=== PATIENT | male | born 1935 | race Caucasian/White ===

== ENCOUNTER 2018-01-16 12:21 | Emergency (ER) | payer MEDICARE, OTHER ==
[2018-01-16 16:35] LABS: Urine Appearance Clear; Urine Blood Negative (Negative); Urine Color Yellow; Urine Ketones Trace (Negative); Urine Protein Negative (Negative); Urine Specific Gravity 1.009 (1.010-1.030); Urine Urobilinogen Negative (Negative)
[2018-01-16 17:53] LABS: ABS Basophils 0 10^3/ul (0-0.2); ABS Eosinophils 0.1 10^3/ul (0-0.6); ABS Lymphocytes 1.4 10^3/ul (1.0-4.8); ABS Monocytes 0.4 10^3/ul (0-0.8); ABS Neutrophils 4.2 10^3/ul (1.5-7.7); ABS Nucleated RBC 0 10^3/ul; Eosinophil % 0.8 % (0-6); Hematocrit 44 % (42-52); Hemoglobin 14.7 g/dl (14.0-18.0); Lymphocyte % 23.5 % (25-47); Mean Corpuscular HGB Conc 34 g/dl (31-36); Mean Corpuscular Hemoglobin 32 pg (27-31); Mean Corpuscular Volume 94 fL (80-94); Mean Platelet Volume 8 um3 (7.4-10.4); Nucleated Red Blood Cells % 0; Platelet Count 170 10^3/ul (150-450); Red Blood Count 4.63 10^6/ul (4.0-5.4); Red Cell Distribution Width 13 % (10.5-15); White Blood Count 6.2 10^3/ul (3.5-10.8)
[2018-01-16 18:10] LABS: EGFR Non-African American 87.5 (>60)
--- NOTE | 2018-01-16 18:58 | ED ---
Psychiatric Complaint - HPI Summary HPI Summary: Pt here w/ insomnia x 3 weeks. Started on sertraline in the hopes this would help but no improvement. In fact, he's sleeping less. Was also rx'd alprazolam for insomnia/anxiety and he reports this helped 1 night but only sleeping 1-2 hours since. He additionally tried benadryl on his own which helped 1 night but no after. He is exhausted from not sleeping and anxiety is increasing. [facility] Cannot be seen for med adjustment until 01/29/2018 which is why he's here. Has family and support. - History Of Current Complaint Chief Complaint: EDGeneral Time Seen by Provider: 01/16/18 14:50 Hx Obtained From: Patient - Allergies/Home Medications Allergies/Adverse Reactions: Allergies Allergy/AdvReac Type Severity Reaction Status Date / Time ENVIRONMENT/SEASONAL HAYFEVER Allergy WATERY Uncoded 01/16/18 12:27 EYES,RUNNYNOSE Home Medications: Home Medications ALPRAZolam TAB* [Xanax TAB*] 0.25 mg PO DAILY 01/16/18 [History Confirmed ] ALPRAZolam TAB* [Xanax TAB*] 0.5 mg PO BID 01/16/18 [History Confirmed 01/16/18] Aspirin EC Low Dose* [Ecotrin EC Low Dose 81 MG*] 81 mg PO DAILY 01/16/18 [ History Confirmed 01/16/18] Brimonidine Tartrate 0.2 % RIGHT EYE BID 01/16/18 [History Confirmed 01/16/18] Cholecalciferol CAP/TAB(NF) [Vitamin D3 CAP/TAB (NF)] 2,000 unit PO DAILY [History Confirmed 01/16/18] Dorzolamide/Timolol OPTH (NF) [Cosopt (NF)] 1 drop RIGHT EYE BID 01/16/18 [ History Confirmed 01/16/18] Sertraline* [Zoloft*] 50 mg PO DAILY 01/16/18 [History Confirmed 01/16/18] Simvastatin (NF) [Zocor (NF)] 40 mg PO QPM 01/16/18 [History Confirmed 01/16/18] PMH/Surg Hx/FS Hx/Imm Hx Previously Healthy: Yes Endocrine/Hematology History: Denies: Hx Anticoagulant Therapy - ASA Cardiovascular History: Reports: Hx Coronary Artery Disease - CARDIAC STENT - 2010, Other Cardiovascular Problems/Disorders - CHOLESTEROL CONTROL WITH MEDICATION GI History: Reports: Hx Hiatal Hernia - DIAGNOSIS YEARS AGO, NO PROBLEMS History: Reports: Other Problems/Disorders - BENIGN PROSTATE HYPERTROPHY Musculoskeletal History: Reports: Hx Arthritis - MINOR PROBLEMS Sensory History: Reports: Hx Contacts or Glasses - GLASSES, Hx Glaucoma - BILATERAL Denies: Hx Hearing Aid Opthamlomology History: Reports: Hx Contacts or Glasses - GLASSES, Hx Glaucoma - BILATERAL Psychiatric History: Reports: Hx Anxiety - ON MEDS - Surgical History Surgery Procedure, Year, and Place: HEMORRHOIDECTOMY, [facility] [place] (OVER 50 YEARS AGO). CYST REMOVED FROM LOWER PART OF SPINE, [facility] [place] (OVER 50 YEARS AGO). 2010 CARDIAC STENT PLACEMENT, [facility]. 2011 TRANSURETHRAL RESECTION OF PROSTATE, [facility] [place] Hx Anesthesia Reactions: No - Immunization History Date of Tetanus Vaccine: Unk Date of Influenza Vaccine: Fall 2013 Infectious Disease History: No Infectious Disease History: Denies: Traveled Outside the [place] in Last 30 Days - Family History Known Family History: Positive: None - Social History Occupation: Retired Lives: With Family - Alcohol Use: None Hx Substance Use: No Substance Use Type: Reports: None. Denies: Excessive Caffeine Hx Tobacco Use: No Smoking Status (MU): Never Smoked Tobacco Review of Systems Positive: Fatigue - exhausted - wants to sleep - having memory issues d/t lack of sleep Eyes: Negative ENT: Negative Cardiovascular: Negative Respiratory: Negative Gastrointestinal: Negative Positive: no symptoms reported Musculoskeletal: Negative Skin: Negative Neurological: Negative Positive: Anxious All Other Systems Reviewed And Are Negative: Yes Physical Exam Triage Information Reviewed: Yes Vital Signs On Initial Exam: Initial Vitals Temp Pulse Resp BP Pulse Ox 97.3 F 68 18 126/71 99 01/16/18 12:23 01/16/18 12:23 01/16/18 12:23 01/16/18 12:23 01/16/18 12:23 Vital Signs Reviewed: Yes Appearance: Positive: Well-Appearing, Well-Nourished, Pain Distress - no pain but appears anxious, perseverates on insomnia Skin: Positive: Warm, Skin Color Reflects Adequate Perfusion, Dry Head/Face: Positive: Normal Head/Face Inspection - no signs of trauma Eyes: Positive: Normal, EOMI, JOHN, Conjunctiva Clear ENT: Positive: Normal ENT inspection, Hearing grossly normal, Pharynx normal - mucosa moist, TMs normal. Negative: Nasal congestion Neck: Positive: Supple, Nontender, No Lymphadenopathy Respiratory/Lung Sounds: Positive: Clear to Auscultation, Breath Sounds Present Cardiovascular: Positive: S1, S2. Negative: Murmur, Rub, Leg Edema Left, Leg Edema Right Abdomen Description: Positive: Nontender, No Organomegaly, Soft Bowel Sounds: Positive: Present Musculoskeletal: Positive: Normal, Strength/ROM Intact - appropriate given arthritis Neurological: Positive: Sensory/Motor Intact, Alert, Oriented to Person Place, Time - overall mentation is intact - he does struggle w/ recall of details but admits he hasn't been thinking clearly since sleep deprivation got worse, CN Intact II-III Psychiatric: Positive: Anxious - hyperverbal, perseverates, seems relaxed and happy to talk about the past; upset and anxious when reporting how the news, etc have a negative impact on him- also explains in a round about way he's upset about his keeping the TV loud enough for him to hear her programs which are dramatic and negative; no SI/HI - just wants to get better Diagnostics - Vital Signs Vital Signs Temp Pulse Resp BP Pulse Ox 01/16/18 18:00 71 99 01/16/18 17:42 65 99 01/16/18 17:30 155/77 01/16/18 17:00 147/83 01/16/18 16:30 162/75 01/16/18 16:00 66 168/89 100 01/16/18 15:30 63 144/74 99 01/16/18 15:00 62 138/76 98 01/16/18 14:30 58 123/69 97 01/16/18 14:10 60 99 01/16/18 14:08 146/77 01/16/18 12:23 97.3 F 68 18 126/71 99 - Laboratory Lab Results: Lab Results 01/16/18 01/16/18 01/16/18 Range/Units 16:23 17:39 17:42 WBC (3.5-10.8) 10^3/ul RBC (4.0-5.4) 10^6/ul Hgb (14.0-18.0) g/dl Hct (42-52) % MCV (80-94) fL MCH (27-31) pg MCHC (31-36) g/dl RDW (10.5-15) % Plt Count (150-450) 10^3/ul MPV (7.4-10.4) um3 Neut % (Auto) (38-83) % Lymph % (Auto) (25-47) % [place] % (Auto) (0-7) % Eos % (Auto) (0-6) % Baso % (Auto) (0-2) % Absolute Neuts (auto) (1.5-7.7) 10^3/ul Absolute Lymphs (auto) (1.0-4.8) 10^3/ul Absolute Monos (auto) (0-0.8) 10^3/ul Absolute Eos (auto) (0-0.6) 10^3/ul Absolute Basos (auto) (0-0.2) 10^3/ul Absolute Nucleated RBC 10^3/ul Nucleated RBC % Sodium 136 (133-145) mmol/L Potassium 4.3 (3.5-5.0) mmol/L Chloride 104 (101-111) mmol/L Carbon Dioxide 28 (22-32) mmol/L Anion Gap 4 (2-11) mmol/L BUN 17 (6-24) mg/dL Creatinine 0.84 (0.67-1.17) mg/dL Est GFR ( Amer) 112.5 (>60) Est GFR (Non-Af Amer) 87.5 (>60) BUN/Creatinine Ratio 20.2 H (8-20) Glucose 99 (70-100) mg/dL Calcium 9.1 (8.6-10.3) mg/dL Magnesium 2.0 (1.9-2.7) mg/dL Total Bilirubin 0.80 (0.2-1.0) mg/dL AST 18 (13-39) U/L ALT 15 (7-52) U/L Alkaline Phosphatase 40 (34-104) U/L Total Protein 6.2 L (6.4-8.9) g/dL Albumin 3.8 (3.2-5.2) g/dL Globulin 2.4 (2-4) g/dL Albumin/Globulin Ratio 1.6 (1-3) TSH 0.80 (0.34-5.60) mcIU/mL Urine Color Yellow Urine Appearance Clear Urine pH 6.0 (5-9) Ur Specific [place] 1.009 L (1.010-1.030) Urine Protein Negative (Negative) Urine Ketones Trace A (Negative) Urine Blood Negative (Negative) Urine Nitrate Negative (Negative) Urine Bilirubin Negative (Negative) Urine Urobilinogen Negative (Negative) Ur Leukocyte Esterase Negative (Negative) Urine Glucose Negative (Negative) Salicylates < 2.50 (<30) mg/dL Urine Opiates Screen None detected (None Detect) Acetaminophen < 15 mcg/mL Ur Barbiturates Screen None detected (None Detect) Ur Phencyclidine Scrn None detected (None Detect) Ur Amphetamines Screen None detected (None Detect) U Benzodiazepines Scrn Presumptive positive A (None Detect) Urine Cocaine Screen None detected (None Detect) U Cannabinoids Screen None detected (None Detect) Serum Alcohol < 10 (<10) mg/dL 01/16/18 Range/Units 17:42 WBC 6.2 (3.5-10.8) 10^3/ul RBC 4.63 (4.0-5.4) 10^6/ul Hgb 14.7 (14.0-18.0) g/dl Hct 44 (42-52) % MCV 94 (80-94) fL MCH 32 H (27-31) pg MCHC 34 (31-36) g/dl RDW 13 (10.5-15) % Plt Count 170 (150-450) 10^3/ul MPV 8 (7.4-10.4) um3 Neut % (Auto) 68.4 (38-83) % Lymph % (Auto) 23.5 L (25-47) % [place] % (Auto) 6.7 (0-7) % Eos % (Auto) 0.8 (0-6) % Baso % (Auto) 0.6 (0-2) % Absolute Neuts (auto) 4.2 (1.5-7.7) 10^3/ul Absolute Lymphs (auto) 1.4 (1.0-4.8) 10^3/ul Absolute Monos (auto) 0.4 (0-0.8) 10^3/ul Absolute Eos (auto) 0.1 (0-0.6) 10^3/ul Absolute Basos (auto) 0 (0-0.2) 10^3/ul Absolute Nucleated RBC 0 10^3/ul Nucleated RBC % 0 Sodium (133-145) mmol/L Potassium (3.5-5.0) mmol/L Chloride (101-111) mmol/L Carbon Dioxide (22-32) mmol/L Anion Gap (2-11) mmol/L BUN (6-24) mg/dL Creatinine (0.67-1.17) mg/dL Est GFR ( Amer) (>60) Est GFR (Non-Af Amer) (>60) BUN/Creatinine Ratio (8-20) Glucose (70-100) mg/dL Calcium (8.6-10.3) mg/dL Magnesium (1.9-2.7) mg/dL Total Bilirubin (0.2-1.0) mg/dL AST (13-39) U/L ALT (7-52) U/L Alkaline Phosphatase (34-104) U/L Total Protein (6.4-8.9) g/dL Albumin (3.2-5.2) g/dL Globulin (2-4) g/dL Albumin/Globulin Ratio (1-3) TSH (0.34-5.60) mcIU/mL Urine Color Urine Appearance Urine pH (5-9) Ur Specific [place] (1.010-1.030) Urine Protein (Negative) Urine Ketones (Negative) Urine Blood (Negative) Urine Nitrate (Negative) Urine Bilirubin (Negative) Urine Urobilinogen (Negative) Ur Leukocyte Esterase (Negative) Urine Glucose (Negative) Salicylates (<30) mg/dL Urine Opiates Screen (None Detect) Acetaminophen mcg/mL Ur Barbiturates Screen (None Detect) Ur Phencyclidine Scrn (None Detect) Ur Amphetamines Screen (None Detect) U Benzodiazepines Scrn (None Detect) Urine Cocaine Screen (None Detect) U Cannabinoids Screen (None Detect) Serum Alcohol (<10) mg/dL Result Diagrams: 01/16/18 17:42 01/16/18 17:42 Lab Statement: Any lab studies that have been ordered have been reviewed, and results considered in the medical decision making process. Course/Dx - Course Course Of Treatment: Pt presents w/ 3 week h/o insomnia which is worse as of late. He has been taking sertaline and tried alprazolam as well as benadryl with limited relief. He has a tremendous amount of anxiety and it's difficult to tell if this triggered insomnia or if insomnia is exacerbating pre-existing anxiety or both. Due to his age, I have requested a psychiatriast evaluation for med suggestion as I do not want to cause more harm than good ordering a standard sleep aid such as trazodone, ambien which are not appropriate for him. MH agrees to hold in flex until psychiatrist may evaluate in the morning. ALthough pt is reluctant d/t change, pt and [id number] agree w/ plan. - Differential Dx/Clinical Impression Provider Diagnosis: Anxiety Discharge - Discharge Plan Condition: Stable Disposition: HOME Prescriptions: QUEtiapine TAB* [SEROquel TAB*] 25 mg PO BEDTIME #30 tab Referrals: Rodriguez FERNANDEZ,Tash Mckeon [Primary Care Provider] -
[2018-01-16] MEDS ORDERED: ALPRAZolam TAB* 0.5 MG PO ONE (22:57)
[2018-01-16] MEDS ORDERED: Latanoprost 0.005%* 2.5 ml BTL RIGHT EYE SCH (23:00)
[2018-01-16] MEDS ORDERED: Simvastatin TAB(NF) 20 MG TAB PO ONE (23:01)
[2018-01-16] MEDS ORDERED: Atorvastatin* 20 MG TAB PO ONE (23:45)
--- NOTE | 2018-01-17 12:42 | PN ---
ED Flex Patient Progress Note Date of Service: 01/17/18 Subjective: This is a 82 year-old M who is pending discharge to home secondary to insomnia. Pt states only slept 3 hours last night. He also admits to in appetite past couple months. Objective: Vitals: Most recent vital signs documented below. General NAD, Alert and oriented x3. Heart: rrr at 70bpm Lungs: CTA or with rales, rhonchi, wheezing abd: soft nontender Laboratory: Current laboratory results documented below. Assessment: insomnia Plan: Pending psychiatric to discharge condition:Stable disposition: home Vital Signs Temp Pulse Resp BP Pulse Ox 98.1 F 77 14 111/70 99 01/16/18 23:22 01/16/18 23:22 01/16/18 23:55 01/16/18 23:22 01/16/18 23:22 Lab Results - Entire Visit 01/16/18 01/16/18 01/16/18 17:42 17:42 17:39 WBC 6.2 RBC 4.63 Hgb 14.7 Hct 44 MCV 94 MCH 32 H MCHC 34 RDW 13 Plt Count 170 MPV 8 Neut % (Auto) 68.4 Lymph % (Auto) 23.5 L [place] % (Auto) 6.7 Eos % (Auto) 0.8 Baso % (Auto) 0.6 Absolute Neuts (auto) 4.2 Absolute Lymphs (auto) 1.4 Absolute Monos (auto) 0.4 Absolute Eos (auto) 0.1 Absolute Basos (auto) 0 Absolute Nucleated RBC 0 Nucleated RBC % 0 Sodium 136 Potassium 4.3 Chloride 104 Carbon Dioxide 28 Anion Gap 4 BUN 17 Creatinine 0.84 Est GFR ( Amer) 112.5 Est GFR (Non-Af Amer) 87.5 BUN/Creatinine Ratio 20.2 H Glucose 99 Calcium 9.1 Magnesium 2.0 Total Bilirubin 0.80 AST 18 ALT 15 Alkaline Phosphatase 40 Total Protein 6.2 L Albumin 3.8 Globulin 2.4 Albumin/Globulin Ratio 1.6 TSH 0.80 Urine Color Urine Appearance Urine pH Ur Specific [place] Urine Protein Urine Ketones Urine Blood Urine Nitrate Urine Bilirubin Urine Urobilinogen Ur Leukocyte Esterase Urine Glucose Salicylates < 2.50 Urine Opiates Screen None detected Acetaminophen < 15 Ur Barbiturates Screen None detected Ur Phencyclidine Scrn None detected Ur Amphetamines Screen None detected U Benzodiazepines Scrn Presumptive positive A Urine Cocaine Screen None detected U Cannabinoids Screen None detected Serum Alcohol < 10 01/16/18 16:23 WBC RBC Hgb Hct MCV MCH MCHC RDW Plt Count MPV Neut % (Auto) Lymph % (Auto) [place] % (Auto) Eos % (Auto) Baso % (Auto) Absolute Neuts (auto) Absolute Lymphs (auto) Absolute Monos (auto) Absolute Eos (auto) Absolute Basos (auto) Absolute Nucleated RBC Nucleated RBC % Sodium Potassium Chloride Carbon Dioxide Anion Gap BUN Creatinine Est GFR ( Amer) Est GFR (Non-Af Amer) BUN/Creatinine Ratio Glucose Calcium Magnesium Total Bilirubin AST ALT Alkaline Phosphatase Total Protein Albumin Globulin Albumin/Globulin Ratio TSH Urine Color Yellow Urine Appearance Clear Urine pH 6.0 Ur Specific [place] 1.009 L Urine Protein Negative Urine Ketones Trace A Urine Blood Negative Urine Nitrate Negative Urine Bilirubin Negative Urine Urobilinogen Negative Ur Leukocyte Esterase Negative Urine Glucose Negative Salicylates Urine Opiates Screen Acetaminophen Ur Barbiturates Screen Ur Phencyclidine Scrn Ur Amphetamines Screen U Benzodiazepines Scrn Urine Cocaine Screen U Cannabinoids Screen Serum Alcohol
--- NOTE | 2018-01-17 12:47 | PN ---
ED Flex Patient Progress Note Date of Service: 01/17/18 Subjective: Ilir is met along with his in the Flex. Chief complaint is insomnia. Sertraline and alprazolam started recently by [facility] in [place]. Denies SI. Would like an Rx for a soporific. Objective: Pleasant, calm, anxious; denies AH/VH/SI/HI. Assessment: Insomnia Plan: D/C to home with . Start quetiapine 25mg PO qhs. May take two tabs if necessary. F/U with Dr. Collins Conway at [facility] on January 29, 2018. Vital Signs Temp Pulse Resp BP Pulse Ox 98.1 F 77 14 111/70 99 01/16/18 23:22 01/16/18 23:22 01/16/18 23:55 01/16/18 23:22 01/16/18 23:22 Lab Results - Entire Visit 01/16/18 01/16/18 01/16/18 17:42 17:42 17:39 WBC 6.2 RBC 4.63 Hgb 14.7 Hct 44 MCV 94 MCH 32 H MCHC 34 RDW 13 Plt Count 170 MPV 8 Neut % (Auto) 68.4 Lymph % (Auto) 23.5 L [place] % (Auto) 6.7 Eos % (Auto) 0.8 Baso % (Auto) 0.6 Absolute Neuts (auto) 4.2 Absolute Lymphs (auto) 1.4 Absolute Monos (auto) 0.4 Absolute Eos (auto) 0.1 Absolute Basos (auto) 0 Absolute Nucleated RBC 0 Nucleated RBC % 0 Sodium 136 Potassium 4.3 Chloride 104 Carbon Dioxide 28 Anion Gap 4 BUN 17 Creatinine 0.84 Est GFR ( Amer) 112.5 Est GFR (Non-Af Amer) 87.5 BUN/Creatinine Ratio 20.2 H Glucose 99 Calcium 9.1 Magnesium 2.0 Total Bilirubin 0.80 AST 18 ALT 15 Alkaline Phosphatase 40 Total Protein 6.2 L Albumin 3.8 Globulin 2.4 Albumin/Globulin Ratio 1.6 TSH 0.80 Urine Color Urine Appearance Urine pH Ur Specific [place] Urine Protein Urine Ketones Urine Blood Urine Nitrate Urine Bilirubin Urine Urobilinogen Ur Leukocyte Esterase Urine Glucose Salicylates < 2.50 Urine Opiates Screen None detected Acetaminophen < 15 Ur Barbiturates Screen None detected Ur Phencyclidine Scrn None detected Ur Amphetamines Screen None detected U Benzodiazepines Scrn Presumptive positive A Urine Cocaine Screen None detected U Cannabinoids Screen None detected Serum Alcohol < 10 01/16/18 16:23 WBC RBC Hgb Hct MCV MCH MCHC RDW Plt Count MPV Neut % (Auto) Lymph % (Auto) [place] % (Auto) Eos % (Auto) Baso % (Auto) Absolute Neuts (auto) Absolute Lymphs (auto) Absolute Monos (auto) Absolute Eos (auto) Absolute Basos (auto) Absolute Nucleated RBC Nucleated RBC % Sodium Potassium Chloride Carbon Dioxide Anion Gap BUN Creatinine Est GFR ( Amer) Est GFR (Non-Af Amer) BUN/Creatinine Ratio Glucose Calcium Magnesium Total Bilirubin AST ALT Alkaline Phosphatase Total Protein Albumin Globulin Albumin/Globulin Ratio TSH Urine Color Yellow Urine Appearance Clear Urine pH 6.0 Ur Specific [place] 1.009 L Urine Protein Negative Urine Ketones Trace A Urine Blood Negative Urine Nitrate Negative Urine Bilirubin Negative Urine Urobilinogen Negative Ur Leukocyte Esterase Negative Urine Glucose Negative Salicylates Urine Opiates Screen Acetaminophen Ur Barbiturates Screen Ur Phencyclidine Scrn Ur Amphetamines Screen U Benzodiazepines Scrn Urine Cocaine Screen U Cannabinoids Screen Serum Alcohol
[2018-01-17 15:04] VITALS: BP 126/74
== END 2018-01-17 13:18 | disposition home or self-care (01) ==
LOC: ED 12:21
DX: F41.9 Anxiety disorder, unspecified (principal); R53.83 Other fatigue; I25.10 Atherosclerotic heart disease of native coronary artery without angina pectoris
CPT/HCPCS: 36415; 80053; 80307; 80320; 80329; 81003; 83735; 84443; 85025; 99285; A9270-GY; G0480

== ENCOUNTER 2018-07-24 07:10 | Day surgery (SDC) | payer MEDICARE, OTHER ==
[~2018-07-24 07:10] MED LIST: Acetaminophen TAB* 325 MG PO PRN; Buffered Lidocaine 0.9% SYRIN* 5 ML/SYR SYRINGE INTRADERM ONE; Midazolam* 1 MG/ML 2 ML VIAL (2 MG) ONE; fentaNYL* 50 MCG/ML 2 ML VIAL (100 MCG VIAL) ONE
[2018-07-24] MEDS ORDERED: Povidone Iodine 5% OPTH* 30 ML BTL ONE (08:15)
[2018-07-24] MEDS ORDERED: acetaZOLAMIDE TAB* 250 MG ONE (08:15)
[2018-07-24] MEDS ORDERED: Cyclopentolate 1% OPTH.SOL* 2 ML BTL ONE (08:15)
[2018-07-24] MEDS ORDERED: Lidocaine 1%* 5 ML VIAL ONE (08:15)
[2018-07-24] MEDS ORDERED: Proparacaine 0.5% OPHTH.SOL* 15 ML BTL ONE (08:15)
[2018-07-24] MEDS ORDERED: Phenylephrine 2.5% OPTH.SOL* 2 ML BTL ONE (08:15)
[2018-07-24] MEDS ORDERED: Trypan Blue 0.06% SOL* 0.5 ML BTL ONE (08:15)
[2018-07-24] MEDS ORDERED: Neomycin/Polymy/Dex OPTH.SUSP* MAXITROL 0.1% 5 ML ONE (08:15)
[2018-07-24] MEDS ORDERED: Ketorolac 0.5% OPHTH (NF) 0.5 % 5 ML BTL ONE (08:15)
[2018-07-24] MEDS ORDERED: Lidocaine 2% EPI 1:200000 MPF*10-20 ML VIAL ONE (08:15)
[2018-07-24] MEDS ORDERED: BSS OPTH.SOL* BTL ONE (08:50)
[2018-07-24 09:14] VITALS: BP 143/60
--- NOTE | 2018-07-24 23:23 | OP ---
DATE OF OPERATION: 07/24/18 - [facility] DATE OF : 35 SURGEON: Artur Manriquez MD PREOPERATIVE DIAGNOSIS: Cataract, left eye. POSTOPERATIVE DIAGNOSIS: Cataract, left eye. OPERATIVE PROCEDURE: Extracapsular cataract extraction with intraocular lens implant, left eye. DESCRIPTION OF PROCEDURE: The patient was brought to the operating room after being given 1/2% Alcaine with epinephrine drops in the preoperative area. The eye was prepped and draped in the usual sterile fashion. Sterile drape and eyelid speculum were placed. Again, topical 1/2% Alcaine with epinephrine was given. A paracentesis incision was made at the 3 o'clock position with the No.75 blade. Clear cornea incision 2.2 x 2.2-mm was created at the 6 o'clock position starting at the anterior limbus using the 2.2-mm keratome. The anterior chamber was irrigated with 0.4 mL of 1% non-preservative intracameral lidocaine and filled with DisCoVisc. A capsulorrhexis was completed using the cystotome and the Utrata forceps. Hydrodissection was performed with balanced salt solution. The lens nucleus was removed with the Phacoemulsification handpiece without incident. Cortex was removed with the irrigation-aspiration handpiece. The capsular bag was re-inflated using DisCoVisc and an SN60WF 20.5 implant was inserted with the shooter. The irrigation-aspiration handpiece was used to remove all residual DisCoVisc. The eye was refilled with balanced salt solution and the wound checked and found to be watertight. Topical Maxitrol drops were given. VisionBlue was used to stain the anterior capsule prior to capsulorrhexis. The pupil was only about 3 mm and stuck down to the the anterior lens surface. The adhesions to the anterior lens surface was broken with the DisCoVisc and Malyugin ring was used to dilate the pupil and removed after insertion of the lens. Indication for complex cataract surgery: White cataract requiring capsular dye , and pupil abnormalities requiring pupil dilation device. [id number]/[facility] #: [id number] MTDD
== END 2018-07-24 09:11 | disposition home or self-care (01) ==
LOC: OREAST 07:10
PROVIDERS: ATTEND Specialist
DX: H25.812 Combined forms of age-related cataract, left eye (principal); H21.562 Pupillary abnormality, left eye; H40.1133 Primary open-angle glaucoma, bilateral, severe stage; H35.371 Puckering of macula, right eye; I25.10 Atherosclerotic heart disease of native coronary artery without angina pectoris; Z95.5 Presence of coronary angioplasty implant and graft; E78.5 Hyperlipidemia, unspecified; M19.90 Unspecified osteoarthritis, unspecified site; F41.8 Other specified anxiety disorders
CPT/HCPCS: A9270-GY; J2250; J3010; V2632

== ENCOUNTER 2018-10-02 06:18 | Day surgery (SDC) | payer MEDICARE, OTHER ==
[~2018-10-02 06:18] MED LIST changes: -Acetaminophen TAB* 325 MG PO PRN; -Midazolam* 1 MG/ML 2 ML VIAL (2 MG) ONE; -fentaNYL* 50 MCG/ML 2 ML VIAL (100 MCG VIAL) ONE
[2018-10-02] MEDS ORDERED: Acetylcholine 1:100 OPTH* OPHTH.SOLN ONE (07:18)
[2018-10-02] MEDS ORDERED: Bupivacaine 0.25% SDV PF* 10 ML VIAL INJ ONE ×2 (07:18→07:27)
[2018-10-02] MEDS ORDERED: Sodium Bicarbonate 8.4% SYR* 10 ML SYRINGE ONE ×2 (07:18→07:28)
[2018-10-02] MEDS ORDERED: Triamcinolone Acetonide* 40 MG/ML 1 ML VIAL ONE (07:18)
[2018-10-02] MEDS ORDERED: Hyaluronidase OVINE* 200 UNIT/ML ML SUBCUT ONE (07:19)
[2018-10-02] MEDS ORDERED: Atropine 1% OPHTH.SOL* 2 ML BOT - 2 ML ONE (07:19)
[2018-10-02] MEDS ORDERED: Lidocaine 2% PF * 5 ML VIAL ONE (07:22)
[2018-10-02] MEDS ORDERED: fentaNYL* 50 MCG/ML 2 ML VIAL (100 MCG VIAL) ONE (07:22)
[2018-10-02] MEDS ORDERED: Propofol* 10 MG/ML 20 ML BTL ONE (07:22)
[2018-10-02] MEDS ORDERED: Naloxone* 0.4 MG/ML 1 ML VIAL IV PRN (07:57)
[2018-10-02 09:06] VITALS: BP 127/58
[2018-10-02] MEDS ORDERED: Proparacaine 0.5% OPHTH.SOL* 15 ML BTL ONE (10:37)
[2018-10-02] MEDS ORDERED: Phenylephrine 2.5% OPTH.SOL* 2 ML BTL ONE (10:37)
[2018-10-02] MEDS ORDERED: Lidocaine 2% EPI 1:200000 MPF*10-20 ML VIAL ONE (10:37)
[2018-10-02] MEDS ORDERED: Povidone Iodine 5% OPTH* 30 ML BTL ONE (10:37)
[2018-10-02] MEDS ORDERED: Ketorolac 0.5% OPHTH (NF) 0.5 % 5 ML BTL ONE (10:37)
[2018-10-02] MEDS ORDERED: Lidocaine 1%* 5 ML VIAL ONE (10:37)
[2018-10-02] MEDS ORDERED: Cyclopentolate 1% OPTH.SOL* 2 ML BTL ONE (10:37)
[2018-10-02] MEDS ORDERED: Neomycin/Polymy/Dex OPTH.SUSP* MAXITROL 0.1% 5 ML ONE (10:37)
--- NOTE | 2018-10-03 05:25 | OP ---
DATE OF OPERATION: 10/02/18 - [facility] DATE OF : 35 SURGEON: Artur Manriquez MD PREOPERATIVE DIAGNOSIS: Uncontrolled glaucoma, malpositioned intraocular lens. POSTOPERATIVE DIAGNOSIS: Uncontrolled glaucoma, malpositioned intraocular lens. OPERATIVE PROCEDURE: Reposition intraocular lens and Ahmed valve insertion with donor sclera, and iris reconstruction. DESCRIPTION OF PROCEDURE: The patient was given retrobulbar anesthesia in the operating room, a 50:50 mixture of 0.25% Marcaine with 2% lidocaine with epinephrine and bicarb 4 cc were injected into the muscle cone without difficulty. Eye was prepped and draped in usual sterile fashion. A lid speculum was placed. A paracentesis incision was made at the 8 o'clock position with the 75 blade and another at the 3 o'clock position. DisCoVisc was used to blunt dissect the iris off the back of the cornea where there were adhesions at 9 o'clock and some at 12 o'clock. An additional paracentesis was then made to release the iris adhesion to the cornea at the 10 o'clock position. The intraocular lens optic was anterior to the iris and the iris was stuck to the posterior capsule. This was carefully dissected using a 27-gauge needle and DisCoVisc to be able to release these adhesions and place the intraocular lens posterior to the iris. Miochol was then instilled into the anterior chamber. Attention was then directed to the Ahmed valve procedure. A superior 6-0 silk traction suture was placed through the superior limbus and eye rotated inferiorly. A fornix-based conjunctival peritomy was performed from the 10 o'clock to the 12 o'clock position with the Jagruti scissors. Dissection carried sub-Tenon's posteriorly to the equator. Ahmed valve primed with balanced salt solution FP7 and then placed on the sclera with the anterior footplates 10 mm posterior to the limbus centered on the 11 o'clock position. This was sutured to the sclera using two 10-0 Prolene through the footplates. Anterior chamber entered using a 27-gauge needle at the 11 o'clock position and the tube cut to length and inserted into the anterior chamber. The tube was then sutured to the bare sclera using two 10-0 Prolene sutures. A donor sclera was cut to fit over the tube and sutured in place with four 10-0 nylon sutures. Conjunctiva closed using a running locking 10-0 nylon suture along the limbus and then a 9-0 Vicryl in the other areas. Traction sutures were removed. Wound was checked and found to be watertight. Kenalog 40 mg/mL 1 mL was injected sub- Tenon's inferotemporally. Topical Maxitrol and atropine were given and the eye was patched. [id number]/[facility] #: [id number] [facility]
[2018-10-03] MEDS ORDERED: Atropine 1% OPHTH.SOL* 2 ML BOT - 2 ML ONE (10:15)
== END 2018-10-02 09:21 | disposition home or self-care (01) ==
LOC: OREAST 06:18
PROVIDERS: ATTEND Specialist
DX: H40.1113 Primary open-angle glaucoma, right eye, severe stage (principal); T85.22XD Displacement of intraocular lens, subsequent encounter; H35.371 Puckering of macula, right eye; E78.00 Pure hypercholesterolemia, unspecified; H21.511 Anterior synechiae (iris), right eye; J44.9 Chronic obstructive pulmonary disease, unspecified; G47.33 Obstructive sleep apnea (adult) (pediatric); N18.9 Chronic kidney disease, unspecified; I12.9 Hypertensive chronic kidney disease with stage 1 through stage 4 chronic kidney disease, or unspecified chronic kidney disease
CPT/HCPCS: A9270-GY; C1783; J2704; J3010; J3301; J3471; J3490

== ENCOUNTER 2022-11-09 13:48 | Observation (INO) ==
[2022-11-09 14:25] LABS: ABS Lymphocytes 0.8 10^3/ul (1.0-4.8); ABS Monocytes 0.3 10^3/ul (0-0.8); ABS Neutrophils 3.8 10^3/ul (1.5-7.7); Eosinophil % 0.7 %; Hematocrit 25 % (42-52); Hemoglobin 8.1 g/dL (14.0-18.0); Lymphocyte % 15.4 %; Mean Corpuscular HGB Conc 32 g/dL (31-36); Mean Corpuscular Hemoglobin 30 pg (27-31); Mean Corpuscular Volume 93 fL (80-94); Mean Platelet Volume 8.5 fL (7.4-10.4); Platelet Count 177 10^3/uL (150-450); Red Blood Count 2.71 10^6 /uL (4.18-5.48); Red Cell Distribution Width 15 % (10-15); White Blood Count 4.9 10^3/uL (3.5-10.8)
[2022-11-09 14:34] LABS: INR 1.12 (0.88-1.18)
[2022-11-09 14:55] LABS: Albumin 3.4 g/dL (3.2-5.2); Albumin/Globulin Ratio 1.8 (1-3); Calcium 8.1 mg/dL (8.6-10.3); Globulin 1.9 g/dL (2-4); Potassium 4.4 mmol/L (3.5-5.0); Total Bilirubin 0.4 mg/dL (0.2-1.0); Total Protein 5.3 g/dL (6.4-8.9)
[2022-11-09 15:53] LABS: High Sensitivity Troponin 1 Hr 4 pg/mL (<20)
[2022-11-09] MEDS ORDERED: Pantoprazole 80 mg in NS BAG 80 MG/250 ML BAG IV SCH (16:00)
[2022-11-09 20:36] LABS: Hematocrit 28 % (42-52); Hemoglobin 8.9 g/dL (14.0-18.0)
[2022-11-09] MEDS: Pantoprazole VIAL 40 MG VIAL IV SCH (21:33)
[2022-11-09 23:38] LABS: Hematocrit 25 % (42-52); Hemoglobin 8.2 g/dL (14.0-18.0)
[2022-11-10 06:34] LABS: ABS Eosinophils 0.1 10^3/ul (0-0.6); ABS Monocytes 0.4 10^3/ul (0-0.8); ABS Neutrophils 2.8 10^3/ul (1.5-7.7); Eosinophil % 1.4 %; Hematocrit 25 % (42-52); Hemoglobin 8.1 g/dL (14.0-18.0); Lymphocyte % 22.9 %; Mean Corpuscular HGB Conc 32 g/dL (31-36); Mean Corpuscular Hemoglobin 30 pg (27-31); Mean Corpuscular Volume 92 fL (80-94); Mean Platelet Volume 8.9 fL (7.4-10.4); Platelet Count 165 10^3/uL (150-450); Red Blood Count 2.73 10^6 /uL (4.18-5.48); Red Cell Distribution Width 15 % (10-15); White Blood Count 4.3 10^3/uL (3.5-10.8)
[2022-11-10 07:15] LABS: Calcium 8.3 mg/dL (8.6-10.3); Potassium 4.2 mmol/L (3.5-5.0); eGFR CKD-EPI 84.4 (>60)
[2022-11-10] MEDS: Pantoprazole VIAL 40 MG VIAL IV SCH ×2 (08:16→21:36)
[2022-11-10] MEDS: Cholecalciferol (VIT D3) 1,000 unit TAB PO SCH (08:16)
[2022-11-10] MEDS: Timolol 0.5% OPTH.SOL BTL RIGHT EYE SCH (14:28)
[2022-11-10 20:14] LABS: Hematocrit 26 % (42-52); Hemoglobin 8.5 g/dL (14.0-18.0)
[2022-11-10] MEDS: Latanoprost 0.005% 2.5 ml BTL RIGHT EYE SCH (21:33)
[2022-11-11 02:06] LABS: Hematocrit 25 % (42-52); Hemoglobin 8.1 g/dL (14.0-18.0)
[2022-11-11 06:16] LABS: ABS Eosinophils 0.1 10^3/ul (0-0.6); ABS Lymphocytes 1.3 10^3/ul (1.0-4.8); ABS Monocytes 0.4 10^3/ul (0-0.8); ABS Neutrophils 2.2 10^3/ul (1.5-7.7); Eosinophil % 1.9 %; Hematocrit 24 % (42-52); Hemoglobin 7.9 g/dL (14.0-18.0); Mean Corpuscular HGB Conc 33 g/dL (31-36); Mean Corpuscular Hemoglobin 30 pg (27-31); Mean Corpuscular Volume 91 fL (80-94); Mean Platelet Volume 8.7 fL (7.4-10.4); Nucleated Red Blood Cells % 0.1; Platelet Count 162 10^3/uL (150-450); Red Blood Count 2.64 10^6 /uL (4.18-5.48); Red Cell Distribution Width 15 % (10-15)
[2022-11-11] MEDS: Cholecalciferol (VIT D3) 1,000 unit TAB PO SCH (08:53)
[2022-11-11] MEDS: Timolol 0.5% OPTH.SOL BTL RIGHT EYE SCH (08:54)
[2022-11-11] MEDS: Pantoprazole VIAL 40 MG VIAL IV SCH ×2 (08:54→19:47)
[2022-11-11] MEDS: Latanoprost 0.005% 2.5 ml BTL RIGHT EYE SCH (19:55)
[2022-11-12 06:41] LABS: ABS Eosinophils 0.1 10^3/ul (0-0.6); ABS Lymphocytes 1.4 10^3/ul (1.0-4.8); ABS Monocytes 0.4 10^3/ul (0-0.8); ABS Neutrophils 2.5 10^3/ul (1.5-7.7); Eosinophil % 1.8 %; Hematocrit 25 % (42-52); Hemoglobin 8.1 g/dL (14.0-18.0); Lymphocyte % 31.9 %; Mean Corpuscular HGB Conc 32 g/dL (31-36); Mean Corpuscular Hemoglobin 30 pg (27-31); Mean Corpuscular Volume 92 fL (80-94); Mean Platelet Volume 8.5 fL (7.4-10.4); Platelet Count 178 10^3/uL (150-450); Red Blood Count 2.74 10^6 /uL (4.18-5.48); Red Cell Distribution Width 15 % (10-15); White Blood Count 4.4 10^3/uL (3.5-10.8)
[2022-11-12 07:51] VITALS: BP 125/71
[2022-11-12] MEDS: Pantoprazole VIAL 40 MG VIAL IV SCH (09:24)
[2022-11-12] MEDS: Cholecalciferol (VIT D3) 1,000 unit TAB PO SCH (09:24)
[2022-11-12] MEDS: Timolol 0.5% OPTH.SOL BTL RIGHT EYE SCH (09:25)
== END 2022-11-12 11:10 | disposition home or self-care (01) ==
LOC: ED 13:48 → EDHOLD 13:48 → SUATTDRO 16:59 → MED 19:56
PROVIDERS: ADMIT Internal Medicine; ATTEND Student in an Organized Health Care Education/Training Program